=== PATIENT | female | born 1950 | race Caucasian/White ===

== ENCOUNTER → 2018-04-03 | Outpatient (CLI) | payer OTHER | END | disposition home or self-care (01) | LOC: KCIC MAMMO 14:04 | DX: Z12.31 Encounter for screening mammogram for malignant neoplasm of breast (principal); M81.0 Age-related osteoporosis without current pathological fracture; M85.88 Other specified disorders of bone density and structure, other site; Z78.0 Asymptomatic menopausal state | CPT/HCPCS: 77067; 77080 ==

== ENCOUNTER → 2018-05-09 | Outpatient (CLI) | payer OTHER | END | disposition home or self-care (01) | LOC: ECHO 12:52 | DX: I08.3 Combined rheumatic disorders of mitral, aortic and tricuspid valves (principal) | CPT/HCPCS: 93306 ==

== ENCOUNTER → 2018-08-10 | Outpatient (CLI) | payer OTHER ==
[2014-08-15 15:43] VITALS: BP 189/83
[~2018-08-10] MED LIST: ACET500T68 PO; AMLO10TA6 PO; ASPI325T11 PO; ATOR10TA60 PO; DOCU-109 PO; GABA300C8 PO; HYDR12.58 PO; IBUP-1027 PO; LISI-334 PO; METO25TA4 PO; PROAIR HFA8.5 GM INH
[2018-08-10 13:52] LABS: BASO % 1 % (0-3); EOS # 0.1 x10^3/uL (0.0-0.7); EOS % 2 % (0-3); HEMATOCRIT 42.4 % (36.0-47.0); HEMOGLOBIN 15.1 g/dL (12.0-15.5); LYMPH # 0.9 x10^3/uL (1.0-4.8); LYMPH % 14 % (24-48); MEAN CORPUSCULAR HEMOGLOBIN 32 pg (25-35); MEAN CORPUSCULAR HGB CONC 36 g/dL (31-37); MEAN CORPUSCULAR VOLUME 90 fL (79-100); MONO # 1.2 x10^3/uL (0.0-1.1); MONO % 18 % (0-9); NEUT # 4.3 x10^3uL (1.8-7.7); NEUT % 65 % (31-73); PLATELET COUNT 157 x10^3/uL (140-400); RED BLOOD COUNT 4.72 x10^6/uL (3.50-5.40); RED CELL DISTRIBUTION WIDTH 12.5 % (11.5-14.5); WHITE BLOOD COUNT 6.5 x10^3/uL (4.0-11.0)
== END | disposition home or self-care (01) ==
LOC: SURGPAT 12:38
PROVIDERS: ATTEND Obstetrics & Gynecology
DX: Z01.812 Encounter for preprocedural laboratory examination (principal); N81.10 Cystocele, unspecified; N39.3 Stress incontinence (female) (male); K46.9 Unspecified abdominal hernia without obstruction or gangrene
CPT/HCPCS: 36415; 85025

== ENCOUNTER 2018-08-17 05:45 | Observation (INO) | payer OTHER ==
[2018-08-15 20:00] VITALS: BP 138/68
[~2018-08-17] VITALS: Ht 167.6 cm; Wt 102.0 kg
[~2018-08-17 05:45] MED LIST changes: -DOCU-109 PO; -GABA300C8 PO
[2018-08-17] MEDS ORDERED: AZTREONAM 1 GM in IV DEXTROSE 5% 50 ML IV PRN (06:00)
[2018-08-17] MEDS ORDERED: CLINDAMYCIN 900MG PREMIX 50 ML IV PRN (06:00)
[2018-08-17] MEDS ORDERED: ESTROGENS, CONJ VAGINAL CREAM 30GM TUBE. ONE (06:08)
[2018-08-17] MEDS: IV RINGERS,LACTATED 1000ML 1,000 ML IV SCH ×2 (06:19→09:59)
[2018-08-17] MEDS ORDERED: MORPHINE SULFATE 2 MG/ML VIAL. IV PRN (07:00)
[2018-08-17] MEDS ORDERED: PROCHLORPERAZINE 10 MG/2 ML VIAL. IV PRN ×2 (07:00→10:00)
[2018-08-17] MEDS ORDERED: HYDROmorphone 2 MG/ML VIAL IV PRN (07:00)
[2018-08-17] MEDS ORDERED: fentaNYL PF VIAL 100 MCG/2 ML VIAL IV PRN ×2 (07:00)
[2018-08-17] MEDS ORDERED: LIDOCAINE 1% PF 2 ML VIAL. ID PRN (07:00)
[2018-08-17] MEDS ORDERED: ONDANSETRON PF 4 MG/2 ML VIAL. IV PRN ×2 (07:00→10:00)
[2018-08-17] MEDS ORDERED: LIDOCAINE 1%/EPI 1:100,000 20 ML VIAL. INJ ONE ×2 (07:15→09:00)
[2018-08-17] MEDS ORDERED: MIDAZOLAM HCL/PF 2 MG/2 ML VIAL. ONE (07:37)
[2018-08-17] MEDS ORDERED: PROPOFOL 20 ML IV ONE (07:37)
[2018-08-17] MEDS ORDERED: DEXAMETHASONE SOD PHOS 20 MG/5 ML VIAL. ONE (07:37)
[2018-08-17] MEDS ORDERED: ONDANSETRON PF 4 MG/2 ML VIAL. ONE (07:37)
[2018-08-17] MEDS ORDERED: FAMOTIDINE 20 MG/2 ML VIAL ONE (07:37)
[2018-08-17] MEDS ORDERED: fentaNYL PF VIAL 100 MCG/2 ML VIAL ONE (07:37)
[2018-08-17] MEDS ORDERED: ROCURONIUM 50 MG/5 ML VIAL. ONE (07:37)
[2018-08-17] MEDS ORDERED: ePHEDrine PF IN SALINE 50 MG/5 ML DISP.SYRIN IV ONE (08:33)
[2018-08-17] MEDS ORDERED: KETOROLAC 30 MG/ML INJ FOR OR. INJ ONE (09:28)
[2018-08-17] MEDS ORDERED: NEOSTIGMINE METHYLSULFATE 5 MG/5 ML SYRINGE. ONE (09:30)
[2018-08-17] MEDS ORDERED: GLYCOPYRROLATE 1 MG/5 ML VIAL. ONE (09:30)
[2018-08-17] MEDS ORDERED: SEVOFLURANE > 120 MINUTES. IH ONE (09:31)
--- NOTE | 2018-08-17 09:46 | PDOC ---
BRIEF OPERATIVE NOTE Date: Aug 17, 2018 Pre-Op Diagnosis 1. Complete vaginal Vault prolapse 2. JAI Post-Op Diagnosis Same Procedure Performed 1. Sacrospinous Vaginal Vault Suspension 2. Bladder Sling 3. Anterior and Posterior Colporrhaphy Surgeon Dr. Ortiz Employee Relation Manager FA: Carlie Anesthesia Type: General Blood Loss 25 ml Specimens Obtained none Findings complete vaginal cuff prolapse and JAI Complications none Operative Note see dictation ABUNDIO ORTIZ Jr, MD Aug 17, 2018 09:46
[2018-08-17] MEDS ORDERED: CALCIUM CARBONATE 500 MG TAB.CHEW PO PRN (10:00)
[2018-08-17] MEDS ORDERED: DEXTROSE 50% 25 GM / 50ML DISP.SYRIN. IV PRN (10:00)
[2018-08-17] MEDS ORDERED: SIMETHICONE 80 MG TAB.CHEW PO PRN (10:00)
[2018-08-17] MEDS ORDERED: KETOROLAC 30 MG/ML VIAL. IV PRN (10:00)
[2018-08-17] MEDS ORDERED: 0.9 % SODIUM CHLORIDE 10 ML DISP.SYRIN. IV PRN (10:00)
[2018-08-17] MEDS ORDERED: diphenhydrAMINE HCL 25 MG CAPSULE PO PRN (10:00)
[2018-08-17] MEDS ORDERED: ZOLPIDEM 5 MG TABLET. PO PRN (10:00)
[2018-08-17 10:50] VITALS: BP 145/72
[2018-08-17 11:05] VITALS: BP 150/67
[2018-08-17 11:15] VITALS: BP 148/72
[2018-08-17 11:30] VITALS: BP 150/67
--- NOTE | 2018-08-17 11:32 | OP ---
DATE OF SURGERY: 08/17/2018 PREOPERATIVE DIAGNOSES: 1. Complete vaginal vault prolapse. 2. Stress urinary incontinence. POSTOPERATIVE DIAGNOSES: 1. Complete vaginal vault prolapse. 2. Stress urinary incontinence. PROCEDURE: 1. Sacrospinous vaginal vault suspension. 2. Bladder sling. 3. Anterior and posterior colporrhaphy with enterocele repair. SURGEON: Abundio Ozuna MD SUBWAREHOUSE SUPERVISOR: Carlie. ANESTHESIA: GETA. ESTIMATED BLOOD LOSS: 25 mL. COMPLICATIONS: None. FINDINGS: Complete vaginal vault prolapse and stress urinary incontinence. SUMMARY: A 68-year-old female who was diagnosed with complete vaginal vault prolapse and stress urinary incontinence in clinic and was counseled on risks, benefits and expectations of surgical procedure involving sacrospinous ligament fixation, anterior and posterior repair and bladder sling placement. The patient voiced clear understanding to proceed. DESCRIPTION OF PROCEDURE: The patient was taken to surgery suite, placed in dorsal lithotomy position, prepped with Betadine solution and draped in a sterile fashion. After adequate anesthesia, a weighted speculum and curved [place] placed. The posterior vaginal cuff was grasped with two Allis clamps. A 1% lidocaine with epinephrine was injected between the 2 Allis clamps in a horizontal fashion. A scalpel was utilized to make an incision in a horizontal fashion between the 2 Allis clamps. The vaginal mucosa was dissected away from the pubovesical fascia as well as the rectovaginal fascia area. The right sacrospinous ligament was palpated and identified. The Capio ligature device was utilized to place a suture through the medial aspect of the right sacrospinous ligament, and then attached to the anterior and posterior cuff of the vagina. Two sutures were placed in this fashion and tied to a loose fit. The remainder of the vaginal cuff was reapproximated using 2-0 Vicryl suture in a [id number] manner. A small Allis clamp was placed on the anterior vaginal mucosa just 1 cm below the urethral orifice. The second Allis clamp was placed at the midline of the anterior vaginal mucosa about 3 cm below. A 1% lidocaine with epinephrine was injected between the 2 Allis clamps as well as in the paraurethral space. Scalpel was utilized to make a vertical incision between the 2 Allis clamps. The anterior vaginal wall mucosa was dissected away from the pubovesical fascia using sharp dissection with Metzenbaum scissors as well as with blunt dissection all the way to the obturator foramen bilaterally. Two groin incisions were made with the scalpel in which the Obtryx trocar device was placed through the left groin incision, guided with my index finger through the periurethral space. The bladder sling mesh was then attached and the trocar was removed in opposite fashion. Same process took place with the right groin region with the right trocar. Cystoscopy was performed in which the bladder was intact. There was no evidence of perforation or injury to the bladder. The ureterovesical junctions were functioning normally. The cystoscope was then removed. The pubovesical fascia was then reapproximated using 2-0 Vicryl suture in an interrupted fashion for the anterior repair. The excess anterior vaginal wall mucosa was excised using Metzenbaum scissors. The remaining anterior vaginal wall mucosa was reapproximated using 2-0 Vicryl suture in a qljiaq-[id number]-heksb manner. Paz catheter was then placed, which elicited clear yellow urine. For the posterior repair, a finger was placed rectally to re-identify the area. It was a site directed repair in which two Allis clamps were placed about 2 cm into the vaginal cuff to enter the vagina on the posterior vaginal wall. Between the 2 Allis clamps 1% lidocaine with epinephrine was injected. A transverse incision was made between the 2 Allis clamps. The rectovaginal fascia was dissected away from the posterior vaginal wall mucosa. There was an enterocele that was there. This was repaired with Monocryl in a pursestring manner reducing the enterocele. The rectovaginal fascia was reapproximated using interrupted sutures of 2-0 Vicryl suture. The excess posterior vaginal mucosa was excised using Metzenbaum scissors. The remaining posterior vaginal mucosa was reapproximated using 2-0 Vicryl suture in a [id number] manner. Premarin soaked vaginal packing was placed. The patient tolerated the procedure well. The groin incisions were reapproximated using Dermabond. Sponge and needle count correct x 3. ABUNDIO OZUNA MD DR: REJI/judie JOB#: [id number] / [id number]
[2018-08-17 11:45] VITALS: BP 156/73
[2018-08-17] MEDS: GABAPENTIN 300 MG CAPSULE. PO SCH (14:00)
[2018-08-17 15:00] VITALS: BP 141/85
[2018-08-17] MEDS: oxyCODONE/APAP 5/325 1 TAB TABLET PO PRN (15:14)
--- NOTE | 2018-08-17 19:29 | RAD ---
AP portable chest radiograph 08/17/2018 Clinical History: Choking episode. An AP erect portable digital radiograph of the chest was obtained. Comparison study is dated 08/11/2014. The patient is rotated to the right. The cardiac silhouette is mildly enlarged. The thoracic aorta is tortuous. No acute pulmonary infiltrate is seen. No pleural effusion or pneumothorax is noted. Degenerative changes are seen involving the thoracic spine and both shoulders. Impression: No acute abnormality is seen. Electronically signed by: Sherwin Collins MD (08/17/2018 7:26 PM) [facility]
[2018-08-18] MEDS: GABAPENTIN 300 MG CAPSULE. PO SCH ×4 (00:17→20:59)
[2018-08-18] MEDS: oxyCODONE/APAP 5/325 1 TAB TABLET PO PRN ×3 (00:18→13:18)
[2018-08-18 00:30] VITALS: BP 160/79
[2018-08-18 06:22] LABS: BASO % 0 % (0-3); EOS % 0 % (0-3); HEMOGLOBIN 13.5 g/dL (12.0-15.5); LYMPH # 1.1 x10^3/uL (1.0-4.8); LYMPH % 7 % (24-48); MEAN CORPUSCULAR HEMOGLOBIN 32 pg (25-35); MEAN CORPUSCULAR HGB CONC 35 g/dL (31-37); MEAN CORPUSCULAR VOLUME 91 fL (79-100); MONO # 1.6 x10^3/uL (0.0-1.1); MONO % 10 % (0-9); NEUT # 14.5 x10^3uL (1.8-7.7); NEUT % 84 % (31-73); PLATELET COUNT 188 x10^3/uL (140-400); RED BLOOD COUNT 4.26 x10^6/uL (3.50-5.40); RED CELL DISTRIBUTION WIDTH 12.6 % (11.5-14.5); WHITE BLOOD COUNT 17.3 x10^3/uL (4.0-11.0)
[2018-08-18 06:33] VITALS: BP 143/76
[2018-08-18 11:13] LABS: % BANDS 3 % (0-9); % LYMPHS 6 % (24-48); % MONOS 11 % (0-10); % SEGS 80 % (35-66); PLT ESTIMATE ADEQUATE (ADEQUATE)
[2018-08-18 13:27] VITALS: BP 158/78
--- NOTE | 2018-08-18 14:12 | PDOC ---
SURGICAL PROGRESS NOTE Subjective Pt. feeling well and wants to stay another night. She reports occasional dizziness while in bed. Encouraged to walk with assistance. Vital Signs Vital Signs Date Time Temp Pulse Resp B/P (MAP) Pulse Ox O2 Delivery O2 Flow Rate FiO2 08/18/18 13:27 97.6 67 20 158/78 (104) 98 Nasal Cannula 2.0 97.6 I&O Intake and Output 08/18/18 07:00 Intake Total 2750 ml Output Total 930 ml Balance 1820 ml Intake Oral 950 ml IV Total 1800 ml Output Urine Total 930 ml PATIENT HAS A BELLE: No General: Alert, Oriented X3, Cooperative HEENT: Atraumatic Lungs: Clear to auscultation Heart: Regular rate Abdomen: Normal bowel sounds, Soft, No tenderness, No masses Psych/Mental Status: Mental status NL Labs Laboratory Tests Test 08/18/18 05:20 White Blood Count 17.3 x10^3/uL (4.0-11.0) Red Blood Count 4.26 x10^6/uL (3.50-5.40) Hemoglobin 13.5 g/dL (12.0-15.5) Hematocrit 39.0 % (36.0-47.0) Mean Corpuscular Volume 91 fL (79-100) Mean Corpuscular Hemoglobin 32 pg (25-35) Mean Corpuscular Hemoglobin Concent 35 g/dL (31-37) Red Cell Distribution Width 12.6 % (11.5-14.5) Platelet Count 188 x10^3/uL (140-400) Neutrophils (%) (Auto) 84 % (31-73) Lymphocytes (%) (Auto) 7 % (24-48) Monocytes (%) (Auto) 10 % (0-9) Eosinophils (%) (Auto) 0 % (0-3) Basophils (%) (Auto) 0 % (0-3) Neutrophils # (Auto) 14.5 x10^3uL (1.8-7.7) Lymphocytes # (Auto) 1.1 x10^3/uL (1.0-4.8) Monocytes # (Auto) 1.6 x10^3/uL (0.0-1.1) Eosinophils # (Auto) 0.0 x10^3/uL (0.0-0.7) Basophils # (Auto) 0.0 x10^3/uL (0.0-0.2) Segmented Neutrophils % 80 % (35-66) Band Neutrophils % 3 % (0-9) Lymphocytes % 6 % (24-48) Monocytes % 11 % (0-10) Platelet Estimate Adequate (ADEQUATE) Laboratory Tests Test 08/18/18 05:20 White Blood Count 17.3 x10^3/uL (4.0-11.0) Red Blood Count 4.26 x10^6/uL (3.50-5.40) Hemoglobin 13.5 g/dL (12.0-15.5) Hematocrit 39.0 % (36.0-47.0) Mean Corpuscular Volume 91 fL (79-100) Mean Corpuscular Hemoglobin 32 pg (25-35) Mean Corpuscular Hemoglobin Concent 35 g/dL (31-37) Red Cell Distribution Width 12.6 % (11.5-14.5) Platelet Count 188 x10^3/uL (140-400) Neutrophils (%) (Auto) 84 % (31-73) Lymphocytes (%) (Auto) 7 % (24-48) Monocytes (%) (Auto) 10 % (0-9) Eosinophils (%) (Auto) 0 % (0-3) Basophils (%) (Auto) 0 % (0-3) Neutrophils # (Auto) 14.5 x10^3uL (1.8-7.7) Lymphocytes # (Auto) 1.1 x10^3/uL (1.0-4.8) Monocytes # (Auto) 1.6 x10^3/uL (0.0-1.1) Eosinophils # (Auto) 0.0 x10^3/uL (0.0-0.7) Basophils # (Auto) 0.0 x10^3/uL (0.0-0.2) Segmented Neutrophils % 80 % (35-66) Band Neutrophils % 3 % (0-9) Lymphocytes % 6 % (24-48) Monocytes % 11 % (0-10) Platelet Estimate Adequate (ADEQUATE) Assessment/Plan A: POD#1 s/p SSF, Bladder sling and A&P repair P: Continue post op care. Anticipate d/c home tomorrow. ABUNDIO OZUNA Jr, MD Aug 18, 2018 14:12
[2018-08-18] MEDS: amLODIPine BESYLATE 10 MG TABLET PO SCH ×2 (14:39→21:00)
[2018-08-18] MEDS: METOPROLOL TART IMMED RELEASE 25 MG TABLET. PO SCH ×2 (14:40→21:00)
[2018-08-18 19:45] VITALS: BP 149/73
[2018-08-19 04:09] VITALS: BP 154/86
[2018-08-19] MEDS: GABAPENTIN 300 MG CAPSULE. PO SCH ×2 (06:01→14:12)
[2018-08-19] MEDS: METOPROLOL TART IMMED RELEASE 25 MG TABLET. PO SCH (08:19)
[2018-08-19] MEDS: amLODIPine BESYLATE 10 MG TABLET PO SCH (08:20)
[2018-08-19 13:26] VITALS: BP 152/84
--- NOTE | 2018-08-19 15:19 | PDOC ---
SURGICAL PROGRESS NOTE Subjective Pt. feeling better and denies any complaints. She is emptying bladder completely and had bowel movement. Vital Signs Vital Signs Date Time Temp Pulse Resp B/P (MAP) Pulse Ox O2 Delivery O2 Flow Rate FiO2 08/19/18 13:26 98.4 152/84 (106) 95 Room Air 2.0 98.4 08/19/18 08:20 69 08/19/18 04:09 18 I&O Intake and Output 08/19/18 07:00 Intake Total 1130 ml Output Total 600 ml Balance 530 ml Intake Oral 1130 ml Output Urine Total 600 ml # Voids 3 PATIENT HAS A BELLE: No General: Alert, Oriented X3, Cooperative HEENT: Atraumatic Lungs: Clear to auscultation Heart: Regular rate Abdomen: Normal bowel sounds, Soft, No tenderness, No masses Psych/Mental Status: Mental status NL Labs Laboratory Tests Test 08/18/18 05:20 White Blood Count 17.3 x10^3/uL (4.0-11.0) Red Blood Count 4.26 x10^6/uL (3.50-5.40) Hemoglobin 13.5 g/dL (12.0-15.5) Hematocrit 39.0 % (36.0-47.0) Mean Corpuscular Volume 91 fL (79-100) Mean Corpuscular Hemoglobin 32 pg (25-35) Mean Corpuscular Hemoglobin Concent 35 g/dL (31-37) Red Cell Distribution Width 12.6 % (11.5-14.5) Platelet Count 188 x10^3/uL (140-400) Neutrophils (%) (Auto) 84 % (31-73) Lymphocytes (%) (Auto) 7 % (24-48) Monocytes (%) (Auto) 10 % (0-9) Eosinophils (%) (Auto) 0 % (0-3) Basophils (%) (Auto) 0 % (0-3) Neutrophils # (Auto) 14.5 x10^3uL (1.8-7.7) Lymphocytes # (Auto) 1.1 x10^3/uL (1.0-4.8) Monocytes # (Auto) 1.6 x10^3/uL (0.0-1.1) Eosinophils # (Auto) 0.0 x10^3/uL (0.0-0.7) Basophils # (Auto) 0.0 x10^3/uL (0.0-0.2) Segmented Neutrophils % 80 % (35-66) Band Neutrophils % 3 % (0-9) Lymphocytes % 6 % (24-48) Monocytes % 11 % (0-10) Platelet Estimate Adequate (ADEQUATE) Assessment/Plan A: POD#2 s/p SSF, A&P repair, and Bladder Sling P: D/c home. ABUNDIO OZUNA Jr, MD Aug 19, 2018 15:19
--- NOTE | 2018-08-19 15:23 | DISCH ---
DISCHARGE INSTRUCTIONS Condition on Discharge Condition on Discharge: Stable Activity After Discharge Activity Instructions for Disc: Activity as tolerated Lifting Instructions after Dis: No heavy lifting Exercise Instruction after Dis: Walk 30 min, 3 x per week Driving Instructions after Dis: No driving for 2 weeks Weight Bearing Status after Di: Full weight bearing Diet after Discharge Diet after Discharge: Low Fat, Regular, Low Sodium 2 gm Contacting the DRRosendo after DC Call your doctor for: If your condition worsens Follow-Up Follow up with: Dr. Ortiz in 2 wks. Treatment/Equipment after DC Adaptive Equipment Issued: None ABUNDIO ORTIZ Jr, MD Aug 19, 2018 15:23
[2018-08-19] MEDS ORDERED: DOCU-109 PO (15:27)
[2018-08-19] MEDS ORDERED: GABA300C8 PO (15:27)
== END 2018-08-19 16:32 | disposition home or self-care (01) ==
LOC: SURG 05:45 → 3 NORTH 10:12
PROVIDERS: ADMIT Obstetrics & Gynecology; ATTEND Obstetrics & Gynecology
DX: N81.10 Cystocele, unspecified (principal); N39.3 Stress incontinence (female) (male); K46.9 Unspecified abdominal hernia without obstruction or gangrene
CPT/HCPCS: 36415; 57260; 57282; 57288; 71045; 85007; 85025; 86850; 86900; 86901; 96374; A7015; G0378; G0379; J1100; J1885; J2250; J2405; J2704; J2710; J3010; J3490; J7030; J7120; S0028; C1771

== ENCOUNTER 2020-02-19 00:04 | Emergency (ER) | payer MEDICARE, OTHER ==
[~2020-02-19] VITALS: Ht 165.1 cm; Wt 100.0 kg
[~2020-02-19 00:04] MED LIST changes: +ALBU2.5V8 INH; -AMLO10TA6 PO; +AMLO10TA8 PO; +DOCU-109 PO; +GABA300C18 PO; -PROAIR HFA8.5 GM INH
--- NOTE | 2020-02-19 00:19 | PHYS DOC ---
Past Medical History Past Medical History: Asthma, Hypertension, Other Additional Past Medical Histor: hemorhoids Past Surgical History: Tubal ligation, Other Additional Past Surgical Histo: left knee, hemorrhoidectomy Smoking Status: Former Smoker Alcohol Use: Occasionally Drug Use: None Adult General Chief Complaint Chief Complaint: Dizziness HPI HPI 69-year-old female presents via EMS with report of dizziness which started at 2300 tonight. Patient reports sensation of "room spinning". Patient did have episode of vomiting times one. Denies fever or chills. Denies trauma. Denies chest pain. Denies history of vertigo. Review of Systems Review of Systems Constitutional: Denies fever or chills Eyes: Denies redness or eye pain HENT: Denies nasal congestion or sore throat Respiratory: Denies cough or shortness of breath Cardiovascular: Denies chest pain or palpitations GI: Denies abdominal pain reports nausea and vomiting : Denies dysuria or hematuria Musculoskeletal: Denies back pain or joint pain Integument: Denies rash or skin lesions Neurologic: Denies headache, focal weakness or sensory changes; reports dizziness and room spinning sensation Complete systems were reviewed and found to be within normal limits, except as documented in this note. Current Medications Current Medications Current Medications Medications (Trade) Dose Ordered Sig/Matias Start Time Stop Time Status Last Admin Dose Admin Ceftriaxone Sodium (Rocephin) 1 gm 1X ONCE 02/19/20 02:15 02/19/20 02:16 DC 02/19/20 02:20 1 GM Meclizine HCl (Antivert) 25 mg 1X ONCE 02/19/20 01:30 02/19/20 01:32 DC 02/19/20 01:38 25 MG Potassium Chloride (Klor-Con) 40 meq 1X ONCE 02/19/20 01:30 02/19/20 01:32 DC 02/19/20 01:38 40 MEQ Sodium Chloride 1,000 ml @ 1,000 mls/hr 1X ONCE 02/19/20 00:30 02/19/20 01:29 DC 02/19/20 00:43 1,000 MLS/HR Allergies Allergies Allergies Coded Allergies Type Severity Reaction Last Updated Verified Penicillins Allergy Intermediate Rash 08/19/18 Yes Sulfa (Sulfonamide Antibiotics) Allergy Intermediate Rash 08/19/18 Yes Physical Exam Physical Exam Constitutional: Well developed, well nourished, no acute distress, non-toxic appearance HENT: Normocephalic, atraumatic Eyes: PERRL, EOMI, conjunctiva normal, no discharge, no horizontal nystagmus not ed Neck: Normal range of motion, no tenderness, supple Cardiovascular: Heart rate bradycardic, regular rhythm Lungs & Thorax: Bilateral breath sounds clear to auscultation, no wheezing Abdomen: Soft, no tenderness Skin: Warm, dry, no erythema, no rash Extremities: No tenderness, ROM intact, no edema Neurologic: Alert and oriented X 3, normal motor function, normal sensory function, no focal deficits noted, cerebellar function intact Psychologic: Affect normal, judgment normal Current Patient Data Vital Signs Vital Signs Date Time Temp Pulse Resp B/P (MAP) Pulse Ox O2 Delivery O2 Flow Rate FiO2 02/19/20 02:22 60 20 98 02/19/20 00:04 97.7 146/79 (101) Room Air 97.7 Lab Values Laboratory Tests Test 02/19/20 00:20 02/19/20 01:45 White Blood Count 9.3 x10^3/uL (4.0-11.0) Red Blood Count 4.65 x10^6/uL (3.50-5.40) Hemoglobin 14.2 g/dL (12.0-15.5) Hematocrit 41.4 % (36.0-47.0) Mean Corpuscular Volume 89 fL (79-100) Mean Corpuscular Hemoglobin 31 pg (25-35) Mean Corpuscular Hemoglobin Concent 34 g/dL (31-37) Red Cell Distribution Width 12.6 % (11.5-14.5) Platelet Count 224 x10^3/uL (140-400) Neutrophils (%) (Auto) 56 % (31-73) Lymphocytes (%) (Auto) 27 % (24-48) Monocytes (%) (Auto) 12 % (0-9) H Eosinophils (%) (Auto) 4 % (0-3) H Basophils (%) (Auto) 1 % (0-3) Neutrophils # (Auto) 5.2 x10^3/uL (1.8-7.7) Lymphocytes # (Auto) 2.6 x10^3/uL (1.0-4.8) Monocytes # (Auto) 1.1 x10^3/uL (0.0-1.1) Eosinophils # (Auto) 0.4 x10^3/uL (0.0-0.7) Basophils # (Auto) 0.1 x10^3/uL (0.0-0.2) Prothrombin Time 12.8 SEC (11.7-14.0) Prothrombin Time INR 1.0 (0.8-1.1) Activated Partial Thromboplast Time 31 SEC (24-38) Sodium Level 133 mmol/L (136-145) L Potassium Level 3.1 mmol/L (3.5-5.1) L Chloride Level 97 mmol/L (98-107) L Carbon Dioxide Level 26 mmol/L (21-32) Anion Gap 10 (6-14) Blood Urea Nitrogen 11 mg/dL (7-20) Creatinine 0.7 mg/dL (0.6-1.0) Estimated GFR (Cockcroft-Gault) 83.0 BUN/Creatinine Ratio 16 (6-20) Glucose Level 121 mg/dL (70-99) H Calcium Level 9.1 mg/dL (8.5-10.1) Magnesium Level 1.8 mg/dL (1.8-2.4) Total Bilirubin 0.6 mg/dL (0.2-1.0) Aspartate Amino Transferase (AST) 42 U/L (15-37) H Alanine Aminotransferase (ALT) 49 U/L (14-59) Alkaline Phosphatase 84 U/L (46-116) Creatine Kinase 195 U/L (26-192) H Creatine Kinase MB (Mass) 3.2 ng/mL (0.0-3.6) Creatine Kinase MB Relative Index 1.6 % (0-4) Troponin I Quantitative < 0.017 ng/mL (0.000-0.055) Total Protein 6.9 g/dL (6.4-8.2) Albumin 4.0 g/dL (3.4-5.0) Albumin/Globulin Ratio 1.4 (1.0-1.7) Urine Collection Type Unknown Urine Color Yellow Urine Clarity Clear Urine pH 5.5 (<5.0-8.0) Urine Specific [place] 1.010 (1.000-1.030) Urine Protein Negative mg/dL (NEG-TRACE) Urine Glucose (UA) Negative mg/dL (NEG) Urine Ketones (Stick) Negative mg/dL (NEG) Urine Blood Negative (NEG) Urine Nitrite Negative (NEG) Urine Bilirubin Negative (NEG) Urine Urobilinogen Dipstick 0.2 mg/dL (0.2 mg/dL) Urine Leukocyte Esterase Small (NEG) Urine RBC 0 /HPF (0-2) Urine WBC 11-20 /HPF (0-4) Urine Squamous Epithelial Cells Few /LPF Urine Bacteria Few /HPF (0-FEW) Urine Hyaline Casts Few /HPF Urine Mucus Slight /LPF Laboratory Tests 02/19/20 00:20 Laboratory Tests 02/19/20 00:20 EKG EKG @0008 Sinus bradycardia at 54bpm, LVH, NO ST elevation, wandering baseline in I and II, incomplete RBBB, nonspecific t wave inversion aVL and V4-V6, compared to prior EKG from 08/12/2014 which was NSR at 73bpm but otherwise without significant change Radiology/Procedures Radiology/Procedures PROCEDURE: CT HEAD WO CONTRAST EXAM: CT HEAD WITHOUT CONTRAST. HISTORY: Dizziness. TECHNIQUE: Computed tomography of the head was performed without intravenous contrast. One or more of the following individualized dose reduction techniques were utilized for this examination: 1. Automated exposure control. 2. Adjustment of the mA and/or kV according to patient size. 3. Use of iterative reconstruction technique. COMPARISON: None. FINDINGS: There is no intracranial hemorrhage. 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 The ventricles are normal in size and position. The visualized paranasal sinuses appear clear. The orbits are unremarkable. The temporal bones are unremarkable. The calvarium reveals no suspicious lesions. There are atherosclerotic calcifications of the internal carotid and vertebral arteries. IMPRESSION: 1. No acute intracranial findings. MRI is more sensitive if there is persistent concern. 2. Hypoattenuation throughout the periventricular white matter is nonspecific but most likely reflects moderate to severe chronic microangiopathic change. Electronically signed by: Elton Gilbert MD (02/19/2020 2:39 AM) [facility] Course & Med Decision Making Course & Med Decision Making Pertinent Labs and Imaging studies reviewed. (See chart for details) Patient presents with history of present illness and physical exam concerning for vertigo. Patient neurologically intact. Afebrile. NIHSS 0. EKG stable. Labs obtained and posted to chart. Potassium replaced. UA with signs of infection. Empiric antibiotic given. CT head without acute process. Symptomatic treatment provided. Patient stable for discharge with outpatient follow-up with PCP. Discussed findings and plan with patient, who acknowledges understanding and agreement. Lory Disclaimer Lory Disclaimer This electronic medical record was generated, in whole or in part, using a voice recognition dictation system. Departure Departure Impression: Primary Impression: Dizziness Additional Impressions: Hypokalemia UTI (urinary tract infection) Disposition: HOME, SELF-CARE Condition: STABLE Referrals: NON,STAFF (PCP) Patient Instructions: Dizziness, Baal-sf-Ecyv, Hypokalemia, Potassium Content of Foods, Urinary Tract Infection, Fwxc-yy-Oojn, Vertigo, Tlsh-dy-Zxol Scripts Cephalexin (KEFLEX) 500 Mg Capsule 500 MG PO TID for 7 Days, #21 CAP Prov: PARKER MARTIN DO 02/19/20 Meclizine Hcl (MECLIZINE HCL) 25 Mg Tablet 1 TAB PO PRN TID PRN for DIZZINESS, #30 TAB Prov: PARKER MARTIN DO 02/19/20 Problem Qualifiers Additional Impressions: UTI (urinary tract infection) Urinary tract infection type: acute cystitis Hematuria presence: without hematuria Qualified Codes: N30.00 - Acute cystitis without hematuria PARKER MARTIN DO Feb 19, 2020 00:19
[2020-02-19] MEDS ORDERED: IV NORMAL SALINE 1000ML BAG 1,000 ML IV ONE (00:30)
[2020-02-19 00:32] LABS: BASO # 0.1 x10^3/uL (0.0-0.2); BASO % 1 % (0-3); EOS # 0.4 x10^3/uL (0.0-0.7); EOS % 4 % (0-3); HEMATOCRIT 41.4 % (36.0-47.0); HEMOGLOBIN 14.2 g/dL (12.0-15.5); LYMPH # 2.6 x10^3/uL (1.0-4.8); LYMPH % 27 % (24-48); MEAN CORPUSCULAR HEMOGLOBIN 31 pg (25-35); MEAN CORPUSCULAR HGB CONC 34 g/dL (31-37); MEAN CORPUSCULAR VOLUME 89 fL (79-100); MONO # 1.1 x10^3/uL (0.0-1.1); MONO % 12 % (0-9); NEUT # 5.2 x10^3/uL (1.8-7.7); NEUT % 56 % (31-73); PLATELET COUNT 224 x10^3/uL (140-400); RED BLOOD COUNT 4.65 x10^6/uL (3.50-5.40); RED CELL DISTRIBUTION WIDTH 12.6 % (11.5-14.5); WHITE BLOOD COUNT 9.3 x10^3/uL (4.0-11.0)
[2020-02-19 00:39] LABS: CALCIUM 9.1 mg/dL (8.5-10.1); CREATININE 0.7 mg/dL (0.6-1.0); POTASSIUM 3.1 mmol/L (3.5-5.1)
[2020-02-19 00:41] LABS: PROTHROMBIN TIME PATIENT 12.8 SEC (11.7-14.0)
[2020-02-19 00:45] LABS: ALBUMIN/GLOBULIN RATIO 1.4 (1.0-1.7); MAGNESIUM 1.8 mg/dL (1.8-2.4); TOTAL BILIRUBIN 0.6 mg/dL (0.2-1.0); TOTAL PROTEIN 6.9 g/dL (6.4-8.2)
[2020-02-19] MEDS ORDERED: POTASSIUM CHLORIDE 20 MEQ TABLET.ER. PO ONE (01:30)
[2020-02-19] MEDS ORDERED: MECLIZINE HCL 12.5 MG TABLET. PO ONE (01:30)
[2020-02-19] MEDS ORDERED: MECL-75 PO (01:37)
[2020-02-19 01:56] LABS: BILIRUBIN,URINE NEGATIVE (NEG); CLARITY,URINE CLEAR; COLOR,URINE YELLOW; NITRITE,URINE NEGATIVE (NEG); PH,URINE 5.5 (<5.0-8.0); PROTEIN,URINE NEGATIVE (NEG-TRACE); UROBILINOGEN,URINE 0.2 mg/dL (0.2 mg/dL)
[2020-02-19 01:59] LABS: SQUAMOUS EPITHELIAL CELL,UR FEW /LPF
[2020-02-19 02:00] LABS: BACTERIA,URINE FEW /HPF (0-FEW); HYALINE CASTS, URINE FEW /HPF; RBC,URINE 0 /HPF (0-2)
[2020-02-19] MEDS ORDERED: CEPH-264 PO (02:11)
[2020-02-19] MEDS ORDERED: cefTRIAXone IV Push 1 GM VIAL. IVP ONE (02:15)
[2020-02-19 02:22] VITALS: BP 133/60
--- NOTE | 2020-02-19 02:41 | RAD ---
EXAM: CT HEAD WITHOUT CONTRAST. HISTORY: Dizziness. TECHNIQUE: Computed tomography of the head was performed without intravenous contrast. One or more of the following individualized dose reduction techniques were utilized for this examination: 1. Automated exposure control. 2. Adjustment of the mA and/or kV according to patient size. 3. Use of iterative reconstruction technique. COMPARISON: None. FINDINGS: There is no intracranial hemorrhage. 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 The ventricles are normal in size and position. The visualized paranasal sinuses appear clear. The orbits are unremarkable. The temporal bones are unremarkable. The calvarium reveals no suspicious lesions. There are atherosclerotic calcifications of the internal carotid and vertebral arteries. IMPRESSION: 1. No acute intracranial findings. MRI is more sensitive if there is persistent concern. 2. Hypoattenuation throughout the periventricular white matter is nonspecific but most likely reflects moderate to severe chronic microangiopathic change. Electronically signed by: Elton Gilbert MD (02/19/2020 2:39 AM) [facility]
--- NOTE | 2020-02-19 03:22 | EKG ---
[address] [place] [address] Test Date: 2020-02-19 Test Time: 00:08:57 Pat Name: GANGA FERGUSON Department: Room: Gender: F [employer] Intern: : 1950 Requested By: PARKER MARTIN Order Number: [id number] Reading MD: Mac Mendoza MD Measurements Intervals [place] Rate: 54 P: PA: QRS: 43 QRSD: 98 T: 95 QT: 436 QTc: 415 Interpretive Statements SR LV[facility] Electronically Signed On 02-19-2020 9:38:49 CDT by Mac Mendoza MD
== END 2020-02-19 02:34 | disposition home or self-care (01) ==
LOC: ER 00:04
DX: N30.00 Acute cystitis without hematuria (principal); E87.6 Hypokalemia; R42 Dizziness and giddiness; R11.2 Nausea with vomiting, unspecified; J45.909 Unspecified asthma, uncomplicated; I10 Essential (primary) hypertension; Z98.51 Tubal ligation status; Z98.890 Other specified postprocedural states; Z87.891 Personal history of nicotine dependence; Z88.0 Allergy status to penicillin; Z88.2 Allergy status to sulfonamides
CPT/HCPCS: 36415; 70450; 80053; 81001; 82553; 83735; 84484; 85025; 85610; 85730; 87086; 93005; 96361; 96374; 99285; J0696; J7030; J8597